=== PATIENT | male | born 1950 | race American Indian/Alaskan Native ===

== ENCOUNTER 2019-06-13 11:32 | Emergency (ER) | payer OTHER ==
[~2019-06-13] VITALS: Ht 172.7 cm; Wt 110.7 kg
[~2019-06-13 11:32] MED LIST: AVALIDE 300/12.1 TAB; BENADRYL25 MG PO; GLUCOTROL10 MG; HUMALOG100 U/ML; JANUVIA25 MG; LANTUS SOLOSTAR3 ML
[2019-06-13] MEDS ORDERED: LIPITOR40 MG (11:40)
[2019-06-13] MEDS ORDERED: ORPHENADRINE C100 MG PO (14:51)
[2019-06-13] MEDS ORDERED: KETOROLAC TROME10 MG PO (14:51)
== END 2019-06-13 15:00 | disposition home or self-care (01) ==
LOC: ER 11:32
DX: S39.012A Strain of muscle, fascia and tendon of lower back, initial encounter (principal); S19.89XA Other specified injuries of other specified part of neck, initial encounter; X50.0XXA Overexertion from strenuous movement or load, initial encounter; Y93.89 Activity, other specified; Y92.89 Other specified places as the place of occurrence of the external cause; Y99.8 Other external cause status